=== PATIENT | female | born 1930 | race Two or more races ===

== ENCOUNTER 2017-12-20 15:10 | Emergency (ER) | payer MEDICARE ==
[~2017-12-20] VITALS: Ht 172.7 cm; Wt 67.0 kg
[~2017-12-20 15:10] MED LIST: CALCIUM CHLORIDE 1GM/10ML SYR IV ONE; EPINEPHRINE 0.1MG/ML (1:10,000) 10ML SYR ONE
[2017-12-20 15:16] VITALS: BP 0/0
== END 2017-12-20 15:30 | disposition expired ==
LOC: ER 15:10
DX: I46.9 Cardiac arrest, cause unspecified (principal); I11.0 Hypertensive heart disease with heart failure; I50.9 Heart failure, unspecified; Z95.1 Presence of aortocoronary bypass graft
CPT/HCPCS: 31500; 92950; 99285; J3490